=== PATIENT | female | born 1975 | race Caucasian/White ===

== ENCOUNTER 2018-05-28 10:52 | Outpatient (REF) | payer BC, SELFPAY ==
[2018-05-28 19:40] LABS: ALT 31 U/L (12-78); AST 28 U/L (15-37); Albumin 3.8 g/dL (3.4-5.0); Alkaline Phosphatase 88 U/L (46-116); Anion Gap 6.2 mmol/L (3-11); BUN 13 mg/dL (7-18); Bilirubin, Total 0.4 mg/dL (0.2-1.0); CO2 30.8 mmol/L (21.0-32.0); CREATININE 0.73 mg/dL (0.55-1.02); Calcium 9.2 mg/dL (8.5-10.1); Chloride 103 mmol/L (98-107); Cholesterol 236 mg/dL (50-200); Glucose 87 mg/dL (70-100); HDL Cholesterol 46 mg/dL (40-60); LDL CHOLESTEROL 156 mg/dL (<100); Potassium 3.9 mmol/L (3.5-5.1); Sodium 140 mmol/L (136-145); TSH (W/Ref FT4) 2.47 uIU/mL (0.358-3.74); Total Protein 7.4 g/dL (6.4-8.2); Triglyceride 222 mg/dL (30-150)
== END 2018-05-28 11:12 ==
LOC: NCHCN 10:52
PROVIDERS: PCP Physician Assistant Medical; Visit Provider Physician Assistant Medical
DX: Z00.00 Encounter for general adult medical examination without abnormal findings (principal); Z13.29 Encounter for screening for other suspected endocrine disorder; Z13.220 Encounter for screening for lipoid disorders; Z13.228 Encounter for screening for other metabolic disorders
CPT/HCPCS: 80053; 80061; 83721; 84443

== ENCOUNTER 2018-09-17 11:21 | Outpatient (CLI) | payer BC, SELFPAY ==
[2018-09-17 13:49] LABS: Kit/Specimen SENT
== END 2018-09-17 11:41 ==
PROVIDERS: PCP Physician Assistant Medical; Visit Provider Naturopath
DX: R53.83 Other fatigue (principal); E07.9 Disorder of thyroid, unspecified
CPT/HCPCS: 36415; 84481

== ENCOUNTER 2018-11-05 10:11 | Outpatient (CLI) | payer BC, SELFPAY ==
[2018-11-05 11:06] LABS: Kit/Specimen SENT
== END 2018-11-05 10:31 ==
PROVIDERS: PCP Physician Assistant Medical; Visit Provider Naturopath
DX: R53.83 Other fatigue (principal); F41.9 Anxiety disorder, unspecified; L30.9 Dermatitis, unspecified; E61.9 Deficiency of nutrient element, unspecified; E63.9 Nutritional deficiency, unspecified
CPT/HCPCS: 36415

== ENCOUNTER 2019-05-30 12:10 | Outpatient (REF) | payer BC, SELFPAY ==
--- NOTE | 2019-05-30 08:45 | PAPFT_PTH ---
PATIENT: Joelle Coyne LOC: [facility] U#:[id number] AGE/SX: 43/F ROOM: RE05/30/[address]: Anthony Butt : 1975 BED: DIS: 05/30/2019 SPEC #: [id number] RECD: 05/31/19 12:50 STATUS: MARILEE SANCHEZ #: [id number] EMILY: 05/30/19 08:[address]: Anthony Butt DEPT: [facility] Cytology RECD BY: Betsy Alfaro Tissues: 1 - CX/ENDOCX FOR PAP SMEARS Procedures: PAP THIN PREP/UVM Screening HPV DNA PROBE Comments: [id number]
== END 2019-05-30 12:30 ==
LOC: NCHCN 12:10
PROVIDERS: PCP Physician Assistant Medical; Visit Provider Physician Assistant Medical
DX: Z12.4 Encounter for screening for malignant neoplasm of cervix (principal); Z11.51 Encounter for screening for human papillomavirus (HPV)
CPT/HCPCS: 88142; 87624

== ENCOUNTER 2019-06-03 08:08 | Outpatient (CLI) | payer BC, SELFPAY ==
[2019-06-03 09:47] LABS: Calculated LDL 127 mg/dL (<100); Cholesterol 185 mg/dL (<200); HDL Cholesterol 46 mg/dL (40-60); Triglyceride 63 mg/dL (<150)
== END 2019-06-03 08:28 ==
PROVIDERS: PCP Physician Assistant Medical; Visit Provider Physician Assistant Medical
DX: Z00.00 Encounter for general adult medical examination without abnormal findings (principal); Z13.220 Encounter for screening for lipoid disorders
CPT/HCPCS: 36415; 80061

== ENCOUNTER 2019-06-30 02:42 | Outpatient (CLI) | payer BC, SELFPAY ==
--- NOTE | 2019-06-30 | DI.MAMMO_ITS ---
EXAM: MAMMO SCREENING CLINICAL HISTORY: SCREENING, HEALTH MAINTENANCE EXAM, Z00.8 TECHNIQUE: Mammograms were interpreted according to the usual protocol including computer analysis w [employer] CAD system, tomosynthesis and C-view imaging. COMPARISON: 2018 FINDINGS: The breasts are composed of heterogeneously dense fibroglandular densities, Breast Density category C . No suspicious masses or suspicious microcalcifications are seen. No skin thickening or abnormal axillary lymph nodes are seen. There has been no significant change from prior exams. IMPRESSION: BIRADS Category 1, negative mammogram. Yearly screening mammography is recommended. BREAST DENSITY: The mammogram demonstrates the patient's breast tissue is dense. Dense breast tissue is very common and is not abnormal but dense breast tissue can make it harder to find cancer on a ma mmogram. Also, dense breast tissue may increase breast cancer risk. This information about the result of the mammogram report was provided to the patient to raise their awareness. Use this report when y ou speak with the patient about their risks for breast cancer, which includes their family history. A t that time, you may recommend additional screening tests (Ultrasound or MRI) as they might be useful based on their risk. A negative radiographic report should not delay biopsy if a dominant or clinically suspicious mass is present. Up to ten percent of cancers are not identified on mammography. A negative report may reinforce clinical impression. Adenosis and dense breasts may obscure an underlying neoplasm. False positive reports average 6 to 10%.
== END 2019-06-30 03:02 ==
PROVIDERS: PCP Physician Assistant Medical; Visit Provider Physician Assistant Medical
DX: Z00.00 Encounter for general adult medical examination without abnormal findings (principal); Z12.31 Encounter for screening mammogram for malignant neoplasm of breast
CPT/HCPCS: 77063; 77067

== ENCOUNTER 2020-10-24 09:16 | Outpatient (REF) | payer BC, SELFPAY ==
[2020-10-24 13:48] LABS: BUN 9 mg/dL (7-18); CREATININE 0.7 mg/dL (0.55-1.02); Calcium 8.6 mg/dL (8.5-10.1); Calculated LDL 113 mg/dL (<100); Chloride 105 mmol/L (98-107); Cholesterol 179 mg/dL (<200); Glucose 85 mg/dL (74-106); HDL Cholesterol 44 mg/dL (40-60); Potassium 4.3 mmol/L (3.5-5.1); Sodium 142 mmol/L (136-145); Triglyceride 112 mg/dL (<150)
== END 2020-10-24 09:17 | disposition home or self-care (01) ==
LOC: NCHCN 09:16
PROVIDERS: PCP Physician Assistant Medical; Visit Provider Physician Assistant Medical
DX: Z00.00 Encounter for general adult medical examination without abnormal findings (principal); Z13.220 Encounter for screening for lipoid disorders; Z13.228 Encounter for screening for other metabolic disorders
CPT/HCPCS: 80048; 80061

== ENCOUNTER 2020-10-25 08:37 | Outpatient (CLI) | payer BC, SELFPAY ==
--- NOTE | 2020-10-25 | DI.MAMMO_ITS ---
Exam(s) MAMMO SCREENING EXAM: MAMMO SCREENING CLINICAL HISTORY: SCREENING, FIBROCYSTIC DISEASE,N60.19. TECHNIQUE: Bilateral full field digital CC and MLO mammographic images were obtained with 3D tomosyn thesis and utilizing computer aided detection (CAD). COMPARISON: Prior mammograms dating back to 2018, the most recent being June 2019. FINDINGS: The fibroglandular tissue is moderately dense, this decreasing the sensitivity of the mammogram for f inding hidden underlying lesions. There are no CAD designations. Benign-appearing nodule laterally in the right breast is unchanged from prior studies and has the chandni earance of benign intramammary lymph node. There are no new obvious spiculated masses nor malignant-appearing microcalcification groups in eithe r breast. There is no significant architectural distortion nor skin thickening-retraction. IMPRESSION: Moderately dense fibroglandular tissue. No obvious radiographic evidence of malignancy and no signif icant change compared to prior mammograms listed above BI-RADS Category 1 - Negative Breast Density - Category C - Heterogeneously dense Breast density Category C or D implies that the patient has dense breast tissue. Dense breast tissue can make it harder to find cancer on a mammogram. Dense breast tissue is also associated with an incr eased risk of breast cancer. This information about the result of the mammogram report was provided to the patient to raise their awareness. Use this report when you speak with the patient about their risks for breast cancer, which includes their family history. At that time, you may recommend additional screening tests (Ultrasoun d or MRI) as these tests may add significant information. A negative radiographic report should not delay biopsy if a dominant or clinically suspicious mass is present. Up to ten percent of cancers are not identified on mammography. A negative report may reinforce clinical impression. Adenosis and dense breasts may obscure an underlying neoplasm. False positive reports average 6 to 10%. Patient will receive a letter notifying them of these results.
== END 2020-10-25 08:57 ==
PROVIDERS: PCP Physician Assistant Medical; Visit Provider Physician Assistant Medical
DX: Z12.31 Encounter for screening mammogram for malignant neoplasm of breast (principal); N60.19 Diffuse cystic mastopathy of unspecified breast
CPT/HCPCS: 77063; 77067

== ENCOUNTER 2020-12-14 13:45 | Outpatient (CLI) | payer BC, SELFPAY ==
--- NOTE | 2020-12-14 | DI.RAD_ITS ---
Exam(s) XR HIP LT COMPLETE AP PELVIS EXAM: XR HIP LT COMPLETE AP PELVIS CLINICAL HISTORY: LT HIP PAIN, M25.552. TECHNIQUE: 2D digital imaging was performed. COMPARISON: No exams were available for comparison FINDINGS: No evidence of pelvic nor hip fracture synovial pits are seen in both hips at the femoral head-neck j unctions. No obvious degenerative changes. IMPRESSION: DATA REPOSITORY: RADIATION DOSE DELIVERED:
--- NOTE | 2020-12-14 17:16 | DI.VRAD_ITS ---
PROCEDURE INFORMATION: Exam: XR Left Hip Exam date and time: 12/14/2020 4:33 PM Age: 45 years old Clinical indication: Other: Lt hip pain wet read TECHNIQUE: Imaging protocol: XR Left hip. Views: 2 or 3 views hip with pelvis when performed. COMPARISON: US PELVIS TRANSVAG 04/18/2015 5:10 PM FINDINGS: Bones/joints: Unremarkable. No acute fracture. Soft tissues: Unremarkable. IMPRESSION: No acute findings. Dictated and Authenticated by: Nacho Blanchard MD. Ordering:ROLA Malloy MD
== END 2020-12-14 14:05 ==
PROVIDERS: PCP Physician Assistant Medical; Visit Provider Physician Assistant Medical
DX: M25.552 Pain in left hip (principal)
CPT/HCPCS: 73502

== ENCOUNTER → 2021-12-04 02:01 | Outpatient (CLI) | payer BC, SELFPAY ==
--- NOTE | 2021-12-04 | DI.MAMMO_ITS ---
Exam(s) MAMMO SCREENING EXAM: MAMMO SCREENING CLINICAL HISTORY: MAMMO SCREENING FOR BREAST CANCER Z12.31 TECHNIQUE: Mammograms were interpreted according to the usual protocol including computer analysis w [employer] CAD system, tomosynthesis and C-view imaging. COMPARISON: 2017 through 2020 FINDINGS: The breasts are composed of scattered fibroglandular densities, Breast Density category B. No suspicious masses or suspicious microcalcifications are seen. No skin thickening or abnormal axillary lymph nodes are seen. There has been no significant change from prior exams. IMPRESSION: BI-RADS Category 1, Negative mammogram Yearly screening mammography is recommended. Breast Density - Category B, scattered fibroglandular densities. A negative radiographic report should not delay biopsy if a dominant or clinically suspicious mass is present. Up to ten percent of cancers are not identified on mammography. A negative report may reinforce clinical impression. Adenosis and dense breasts may obscure an underlying neoplasm. False positive reports average 6 to 10%. Patient will receive a letter notifying them of these results.
== END ==
PROVIDERS: PCP Physician Assistant Medical; Visit Provider Physician Assistant Medical
DX: Z12.31 Encounter for screening mammogram for malignant neoplasm of breast (principal)
CPT/HCPCS: 77063; 77067

== ENCOUNTER 2022-01-01 20:27 | Outpatient (REF) | payer BC, SELFPAY ==
[2022-01-01 20:20] LABS: HCT 38.7 % (36.0-46.0); HGB 13.6 g/dL (11.2-15.7); MCHC 35.1 % (32.0-36.0); MCV 91 fL (80-95); Platelet Count 220 10^3/uL (130-400); RBC 4.25 10^6/uL (3.93-5.22); RDW 12.6 % (11.7-14.6); WBC 5.97 10^3/uL (4.4-10.8)
[2022-01-01 20:48] LABS: ALT 40 U/L (14-59); AST 41 U/L (15-37); Albumin 3.8 g/dL (3.4-5.0); Alkaline Phosphatase 92 U/L (46-116); Anion Gap 9.6 mmol/L (3-11); BUN 11 mg/dL (7-18); Bilirubin, Total 0.3 mg/dL (0.2-1.0); CO2 27.4 mmol/L (21.0-32.0); CREATININE 0.8 mg/dL (0.55-1.02); Calcium 8.8 mg/dL (8.5-10.1); Chloride 105 mmol/L (98-107); Estimated GFR 90.83 (mL/min/1.73m2); Glucose 120 mg/dL (74-106); Potassium 3.7 mmol/L (3.5-5.1); Sodium 142 mmol/L (136-145); TSH (W/Ref FT4) 2.44 uIU/mL (0.36-3.74); Total Protein 7.5 g/dL (6.4-8.2)
== END 2022-01-01 20:28 | disposition home or self-care (01) ==
LOC: NCHCN 20:27
PROVIDERS: PCP Physician Assistant Medical; Visit Provider Physician Assistant Medical
DX: R00.2 Palpitations (principal)
CPT/HCPCS: 80053; 85027; 84443

== ENCOUNTER 2022-02-18 19:36 | Outpatient (REF) | payer BC, SELFPAY ==
[2022-02-18 19:52] LABS: ALT 27 U/L (14-59); AST 24 U/L (15-37); Albumin 3.9 g/dL (3.4-5.0); Alkaline Phosphatase 92 U/L (46-116); Bilirubin, Direct 0.1 mg/dL (0.0-0.2); Bilirubin, Total 0.3 mg/dL (0.2-1.0); Total Protein 7.5 g/dL (6.4-8.2)
== END 2022-02-18 19:37 | disposition home or self-care (01) ==
LOC: NCHCN 19:36
PROVIDERS: PCP Physician Assistant Medical; Visit Provider Physician Assistant Medical
DX: R79.89 Other specified abnormal findings of blood chemistry (principal)
CPT/HCPCS: 80076

== ENCOUNTER 2022-09-05 11:15 | Emergency (ER) | payer BC, SELFPAY ==
[2022-09-05 11:28] VITALS: BP 86/66; PULSE 72; RESP 18; O2SAT 100
--- NOTE | 2022-09-05 11:45 | DI.RAD_ITS ---
Exam(s) XR PELVIS AP EXAM: XR PELVIS AP CLINICAL HISTORY: right si pain. TECHNIQUE: 2D digital imaging was performed. COMPARISON: CR,XR XR HIP LT COMPLETE AP PELVIS from 12/14/2020 FINDINGS: Single AP view. There is no evidence of pelvic nor hip fracture. There are benign synovial pits in the upper aspect of both femoral heads again noted, unchanged from December 2020. SI joints appear unremarkable. No ominous osseous lesions. Bone density normal. IMPRESSION: No acute osseous findings. DATA REPOSITORY: RADIATION DOSE DELIVERED:
--- NOTE | 2022-09-05 11:45 | DI.RAD_ITS ---
Exam(s) XR ANKLE RT COMPLETE EXAM: XR ANKLE RT COMPLETE CLINICAL HISTORY: lateral ankle pain. TECHNIQUE: 2D digital imaging was performed. COMPARISON: No exams were available for comparison FINDINGS: 3 views There is soft tissue swelling laterally but no evidence of fracture or widening of the ankle mortise. Talar dome appears unremarkable. Base of the 5th metatarsal appears unremarkable. No evidence of osseous tarsal coalition. IMPRESSION: No acute osseous findings. Lateral soft tissue swelling evident. DATA REPOSITORY: RADIATION DOSE DELIVERED:
[2022-09-05] MEDS: Acetaminophen 325 MG TAB 650 MG PO (11:57)
--- NOTE | 2022-09-05 12:45 | DI.RAD_ITS ---
Exam(s) XR KNEE RT 3V AP,LAT,RAMONE EXAM: XR KNEE RT 3V AP,LAT,RAMONE CLINICAL HISTORY: ankle and knee injury. TECHNIQUE: 2D digital imaging was performed. COMPARISON: No exams were available for comparison FINDINGS: 3 views There is no evidence of acute fracture nor prominent joint effusion. However, there are significant osteoarthritic degenerative changes in all 3 compartments, despite absence of prominent joint space n arrowing. No ominous osseous lesions. Bone density normal. IMPRESSION: Degenerative changes. No fractures evident. No prominent joint effusion. DATA REPOSITORY: RADIATION DOSE DELIVERED:
[2022-09-05 13:50] VITALS: BP 92/52; PULSE 68; RESP 16; O2SAT 98
--- NOTE | 2022-09-05 15:04 | ED.GENADUL_ITS ---
Discharge Plan Disposition Patient Disposition: Home Discharge Details Clinical Impression: Sprain Primary Care Provider: Anthony Butt ED Provider: Betsy Cook Home Meds and New Rx's Prescriptions: New meloxicam 15 mg tablet 15 mg PO DAILY Qty: 14 0RF Continued evening primrose oil 500 mg capsule 500 mg PO DAILY Rx Instructions: give with meal/snack multivitamin Tablet 1 tab PO DAILY flaxseed-evening prim-bilberry 250-125-12.5 mg capsule PO DAILY bisacodyl [Dulcolax (bisacodyl)] 5 mg tablet,delayed release (DR/EC) 5 mg PO ONCE Qty: 4 0RF Rx Instructions: Take according to provider's instructions for colonoscopy prep. polyethylene glycol 3350 17 gram/dose powder 17 g PO ONCE Qty: 238 0RF Rx Instructions: To be taken as directed by prescriber's office for colonoscopy prep. metoprolol succinate [Toprol XL] 50 MG tablet extended release 24 hr 50 mg PO DAILY sertraline [Zoloft] 20 mg/mL concentrate 75 mg PO DAILY Discharge Instructions Additional Instructions: Please follow-up with your primary care physician if you have persistent pain in 1 week Take ibuprofen and Tylenol as needed for discomfort Use your boot as needed Weightbearing as tolerated Please return should you develop new or worsening complaints Referrals: Anthony Butt PA [Primary Care Provider] - 1 day Discharge Data Discharge Date/Time-TO BE ENTERED AT DEPARTURE: 09/05/22 14:22 Medical Decision Making 38-year-old female presents after mechanical fall x-rays of hip, ankle, and knee do not show evidence of acute abnormality per radiology interpretation and my review Given boot for comfort as right ankle is the most bothersome to patient Neurovascularly intact Reports has crutches at home Repeat film in 1 week with persistent pain recommended Early return precautions reviewed and patient expressed understanding Medical Records Medical records reviewed: Yes I reviewed the patient's medical records. Lab Data Lab results reviewed: Yes I reviewed the patient's lab results. HPI General Date/Time Provider Initiated Documentation: 09/05/22 11:39 . HPI Narrative: This 46-year-old female presents with report of trip and fall on a step at home. Twisted her ankle and felt a crack, also injured knee and hip. Denies any head injury or any additional complaints. Pain with weightbearing. Related Data Home Medications Medication Instructions Recorded Confirmed metoprolol succinate 50 mg 50 mg PO DAILY 05/25/15 09/05/22 tablet,extended release 24 hr (Toprol XL) sertraline 20 mg/mL oral 75 mg PO DAILY 03/01/20 09/05/22 concentrate (Zoloft) evening primrose oil 500 mg capsule 500 mg PO DAILY 12/17/20 09/05/22 flaxseed oil 250 mg-evening cap PO DAILY 12/17/20 11/07/21 primrose 125 mg-bilberry 12.5 mg capsule multivitamin 1 tab PO DAILY 12/17/20 09/05/22 bisacodyl 5 mg tablet,delayed 5 mg PO ONCE #4 tabs 11/07/21 09/05/22 release (Dulcolax (bisacodyl)) polyethylene glycol 3350 17 17 g PO ONCE #238 grams 11/07/21 09/05/22 gram/dose oral powder meloxicam 15 mg tablet 15 mg PO DAILY #14 tabs 09/05/22 Previous Rx's Medication Instructions Recorded bisacodyl 5 mg tablet,delayed 5 mg PO ONCE #4 tabs 11/07/21 release (Dulcolax (bisacodyl)) polyethylene glycol 3350 17 17 g PO ONCE #238 grams 11/07/21 gram/dose oral powder meloxicam 15 mg tablet 15 mg PO DAILY #14 tabs 09/05/22 Allergies Allergy/AdvReac Type Severity Reaction Status Date / Time No Known Allergies Allergy Unverified 09/05/22 11:32 General Stated Complaint: Trauma SOCORRO: 3 PFSH All Active Problems (Updated 09/05/22 @ 13:32 by JUAN Gallegos) Sprain (Acute) Screening for colon cancer (Acute) Medical History (Updated 09/05/22 @ 13:32 by JUAN Gallegos) Anxiety Anxiety and depression Cardiac dysrhythmia Degenerative joint disease of right knee Endometrial polyp Fibrocystic breast disease Hearing deficit Internal derangement of right knee Postcoital bleeding Sensorineural hearing loss (SNHL) of left ear with unrestricted hearing of right ear Supraventricular tachycardia Tinnitus, bilateral Surgical History knee surgery Family History Father Hypertension Heart disease Arthritis IBS (irritable bowel syndrome) PTSD (post-traumatic stress disorder) Mother Diabetes Arthritis Other Personal history of malignant neoplasm Social History Smoking/Tobacco Use Status: Never Smoking risk assessment performed?: Yes Alcohol Intake: never Drug use: Never Substance use type: does not use Do you feel safe at home: Yes Do you feel safe in your relationship?: Yes Exam Const General: cooperative, comfortable and no acute distress Resp Effort & Inspection: normal respiratory effort Auscultation: clear to auscultation bilaterally Cardio Rate: regular rate Rhythm: regular rhythm Neuro General: patient alert and patient oriented x3 Other: Tenderness to palpation to left knee and ankle, neurovascularly intact, mild lateral ankle swelling No significant calf swelling or tenderness Course Vital Signs Vital signs: Vital Signs Pulse 72 09/05/22 11:28 Respiratory Rate 18 09/05/22 11:28 Blood Pressure 86/66 L 09/05/22 11:28 Pulse Oximetry 100 09/05/22 11:28 Pulse 68 09/05/22 13:50 Respiratory Rate 16 09/05/22 13:50 Respiratory Effort Normal 09/05/22 13:50 Respiratory Pattern Normal 09/05/22 13:50 Blood Pressure 92/52 L 09/05/22 13:50 Blood Pressure Position Sitting 09/05/22 11:28 Pulse Oximetry 98 09/05/22 13:50 Oxygen Delivery Method Room Air 09/05/22 11:28 Oxygen Flow Rate 0 09/05/22 11:28
== END 2022-09-05 14:22 | disposition home or self-care (01) ==
PROVIDERS: Emergency Provider Physician Assistant; PCP Physician Assistant Medical
DX: S93.401A Sprain of unspecified ligament of right ankle, initial encounter (principal); W19.XXXA Unspecified fall, initial encounter
CPT/HCPCS: 73562; 99284; 72170; 73610; 99283

== ENCOUNTER 2022-10-17 15:29 | Outpatient (REF) | payer BC, SELFPAY ==
[2022-10-17 19:07] LABS: ALT 40 U/L (14-59); AST 32 U/L (15-37); Albumin 3.8 g/dL (3.4-5.0); Alkaline Phosphatase 97 U/L (46-116); Anion Gap 3.8 mmol/L (3-11); BUN 11 mg/dL (7-18); Bilirubin, Total 0.4 mg/dL (0.2-1.0); CO2 32.2 mmol/L (21.0-32.0); CREATININE 0.7 mg/dL (0.55-1.02); Calcium 8.8 mg/dL (8.5-10.1); Calculated LDL 103 mg/dL (<100); Chloride 104 mmol/L (98-107); Cholesterol 188 mg/dL (<200); Estimated GFR 106.62 (mL/min/1.73m2); Glucose 111 mg/dL (74-106); HDL Cholesterol 46 mg/dL (40-60); Potassium 3.8 mmol/L (3.5-5.1); Sodium 140 mmol/L (136-145); Total Protein 7.5 g/dL (6.4-8.2); Triglyceride 198 mg/dL (<150)
== END 2022-10-17 15:30 | disposition home or self-care (01) ==
LOC: NCHCN 15:29
PROVIDERS: PCP Physician Assistant Medical; Visit Provider Physician Assistant Medical
DX: Z00.00 Encounter for general adult medical examination without abnormal findings (principal); R79.89 Other specified abnormal findings of blood chemistry
CPT/HCPCS: 80053; 80061

== ENCOUNTER 2022-12-05 00:49 | Outpatient (CLI) | payer BC, SELFPAY ==
--- NOTE | 2022-12-05 11:45 | DI.MAMMO_ITS ---
Exam(s) MAMMO SCREENING EXAM: MAMMO SCREENING CLINICAL HISTORY: SCREENING, Z12.31. TECHNIQUE: Bilateral full field digital CC and MLO mammographic images were obtained with 3D tomosyn thesis and utilizing computer aided detection (CAD). COMPARISON: Prior mammograms were reviewed. FINDINGS: There has been no significant change in the appearance and distribution of the fibroglandular tissue. There are no CAD designations. There are no new spiculated masses nor malignant appearing microcalcification groups. Some asymmetric tissue laterally in left breast is unchanged from prior mammograms. There is no significant architectural distortion nor skin thickening-retraction. IMPRESSION: No radiographic evidence of malignancy. BI-RADS Category 1 - Negative Breast Density - Category B - Scattered areas of fibroglandular density Breast density Category C or D implies that the patient has dense breast tissue. Dense breast tissue can make it harder to find cancer on a mammogram. Dense breast tissue is also associated with an incr eased risk of breast cancer. This information about the result of the mammogram report was provided to the patient to raise their awareness. Use this report when you speak with the patient about their risks for breast cancer, which includes their family history. At that time, you may recommend additional screening tests (Ultrasoun d or MRI) as these tests may add significant information. A negative radiographic report should not delay biopsy if a dominant or clinically suspicious mass is present. Up to ten percent of cancers are not identified on mammography. A negative report may reinforce clinical impression. Adenosis and dense breasts may obscure an underlying neoplasm. False positive reports average 6 to 10%. Patient will receive a letter notifying them of these results.
== END 2022-12-05 01:09 ==
LOC: DI 00:49
PROVIDERS: PCP Physician Assistant Medical; Visit Provider Physician Assistant Medical
DX: Z12.31 Encounter for screening mammogram for malignant neoplasm of breast (principal)
CPT/HCPCS: 77063; 77067

== ENCOUNTER 2022-12-05 16:21 | Outpatient (CLI) | payer BC, SELFPAY ==
[2022-12-05 14:46] LABS: TSH (W/Ref FT4) 1.92 uIU/mL (0.36-3.74)
== END 2022-12-05 16:22 | disposition home or self-care (01) ==
LOC: LBO 16:22
PROVIDERS: PCP Physician Assistant Medical; Visit Provider Obstetrics & Gynecology
DX: N92.5 Other specified irregular menstruation (principal); N93.8 Other specified abnormal uterine and vaginal bleeding; F41.8 Other specified anxiety disorders
CPT/HCPCS: 36415; 84443

== ENCOUNTER 2024-06-28 16:04 | Outpatient (REF) | payer BC, SELFPAY ==
[2024-06-28 18:48] LABS: Abs Immature Grans 0.01 10^3/uL (0.0-0.06); Absolute Basophil Count 0.03 10^3/uL (0.0-0.2); Absolute Eosinophil Count 0.28 10^3/uL (0.0-0.7); Absolute Lymphocyte Count 1.76 10^3/uL (1.2-3.4); Absolute Monocyte Count 0.34 10^3/uL (0.1-0.8); Absolute Neutrophil Count 3.97 10^3/uL (1.2-6.7); Basophils % 0.5 %; Eosinophils % 4.4 %; HCT 41.6 % (36.0-46.0); HGB 13.8 g/dL (11.2-15.7); Immature Grans % 0.2 %; Lymphocytes % 27.5 %; MCH 30.9 pg (27.0-33.0); MCHC 33.2 % (32.0-36.0); MCV 93 fL (80-95); MPV 10.8 fL (8.0-11.0); Monocytes % 5.3 %; Neutrophils % 62.1 %; Platelet Count 235 10^3/uL (130-400); RBC 4.46 10^6/uL (3.93-5.22); RDW 12.5 % (11.7-14.6); RDW-SD 43.2 fL; WBC 6.39 10^3/uL (4.4-10.8)
[2024-06-28 19:18] LABS: ALT 28 U/L (14-59); AST 29 U/L (15-37); Albumin 3.9 g/dL (3.4-5.0); Alkaline Phosphatase 101 U/L (46-116); Anion Gap 5.7 mmol/L (3-11); BUN 16 mg/dL (7-18); CO2 31.3 mmol/L (21.0-32.0); Calculated LDL 105 mg/dL (<100); Chloride 105 mmol/L (98-107); Cholesterol 210 mg/dL (<200); Estimated GFR 68.63 (mL/min/1.73m2); Glucose 91 mg/dL (74-106); HDL Cholesterol 53 mg/dL (40-60); Potassium 3.9 mmol/L (3.5-5.1); Sodium 142 mmol/L (136-145); Total Protein 7.4 g/dL (6.4-8.2); Triglyceride 261 mg/dL (<150)
== END 2024-06-28 16:05 | disposition home or self-care (01) ==
LOC: NCHCN 16:04
PROVIDERS: PCP Physician Assistant Medical; Visit Provider Physician Assistant Medical
DX: Z00.00 Encounter for general adult medical examination without abnormal findings (principal)
CPT/HCPCS: 80053; 80061; 85025

== ENCOUNTER 2024-07-11 15:18 | Outpatient (REF) | payer BC, SELFPAY ==
--- NOTE | 2024-07-11 14:00 | PAPFT_PTH ---
PATIENT: Joelle Coyne LOC: [facility]#:[id number] AGE/SX: 48/F ROOM: RE07/11/[address]: Anthony Butt : 1975 BED: DIS: 07/11/2024 SPEC #: [id number] RECD: 07/11/24 18:36 STATUS: MARILEE REQ #: [id number] EMILY: 07/11/24 14:[address]: Anthony Butt DEPT: [facility] Cytology RECD BY: Betsy Alfaro Tissues: 1 - CX/ENDOCX FOR PAP SMEARS Procedures: PAP THIN PREP/UVM Screening HPV DNA PROBE Comments: [id number] (HPV 16 & 18/45)
== END 2024-07-11 15:19 | disposition home or self-care (01) ==
LOC: NCHCN 15:18
PROVIDERS: PCP Physician Assistant Medical; Visit Provider Physician Assistant Medical
DX: Z11.51 Encounter for screening for human papillomavirus (HPV) (principal); Z01.419 Encounter for gynecological examination (general) (routine) without abnormal findings; N76.0 Acute vaginitis
CPT/HCPCS: 88142; 87624

== ENCOUNTER 2024-08-02 01:07 | Outpatient (CLI) | payer BC, SELFPAY ==
--- NOTE | 2024-08-02 16:07 | DI.MAMMO_ITS ---
Exam(s) MAMMO SCREENING EXAM: MAMMO SCREENING CLINICAL HISTORY: SCREENING, Z12.31 TECHNIQUE: Bilateral full field digital CC and MLO mammographic images were obtained with 3D tomosyn thesis and utilizing computer aided detection (CAD). COMPARISON: Available for comparison. FINDINGS: Masses/Architectural Distortion: None seen. Microcalcifications: No suspicious pleomorphic-type are seen. Skin Thickening/Nipple Retraction: None. IMPRESSION: 1. No significant interval change with no specific features of malignancy noted. 2. Unless there is more urgent need, screening mammography is recommended, as per [employer] guidelines. BI-RADS Category 1 - Negative Breast Density - Category B - Scattered areas of fibroglandular density Breast density category C or D implies that the patient has dense breast tissue. Dense breast tissue is very common and is not abnormal but dense breast tissue can make it harder to find cancer on a ma mmogram. Also, dense breast tissue may increase their breast cancer risk. This information about the result of the mammogram report was provided to the patient to raise their awareness. Use this report when you speak with the patient about their risks for breast cancer, which includes their family hist ory. At that time, you may recommend for more screening tests (Ultrasound or MRI) as they might be us eful based on their risk. A negative radiographic report should not delay biopsy if a dominant or clinically suspicious mass is present. Up to ten percent of cancers are not identified on mammography. A negative report may reinforce clinical impression. Adenosis and dense breasts may obscure an underlying neoplasm. False positive reports average 6 to 10%. Patient will receive a letter notifying them of these results.
== END 2024-08-02 01:27 ==
LOC: DI 01:07
PROVIDERS: PCP Physician Assistant Medical; Visit Provider Physician Assistant Medical
DX: Z12.31 Encounter for screening mammogram for malignant neoplasm of breast (principal); R92.323 Mammographic fibroglandular density, bilateral breasts
CPT/HCPCS: 77063; 77067